=== PATIENT | female | born 1960 | race Caucasian/White ===

== ENCOUNTER → 2020-07-14 | Outpatient (CLI) | payer MEDICARE, BC ==
[~2020-07-14] MED LIST: ACET325T9 PO; ASPI-630 PO; BISM262T9 PO; BUPR2TAB SL; DIPH25CA58 PO; DOCU50CA9 PO; HYDR-2145 PO; LACT1CAP6 PO; LORA-254 PO; MELA5TAB20 PO; VENL225T PO
== END ==
LOC: LAB 10:50
PROVIDERS: ATTEND Nurse Anesthetist, Certified Registered
DX: Z01.812 Encounter for preprocedural laboratory examination (principal); Z20.828 Contact with and (suspected) exposure to other viral communicable diseases; R11.0 Nausea
CPT/HCPCS: U0003-CS

== ENCOUNTER → 2020-07-18 | Day surgery (SDC) | payer MEDICARE, BC ==
[~2020-07-18] MED LIST changes: +ACETAMINOPHEN 325 MG TABLET PO PRN; +ALBUTEROL SULFATE 2.5 MG/3 ML NEBU. NEB PRN; +ATROPINE 0.5 MG/5 ML DISP.SYRIN. IV PRN; +IV RINGERS SOLUTION,LACTATED 1,000 ML IV SCH; +MIDAZOLAM HCL PF 2 MG/2 ML VIAL. IV PRN; +ONDANSETRON PF 4 MG/2 ML VIAL. IV PRN; +PHENOL ORAL SPRAY 177ML BOTTLE. MM PRN; +PROPOFOL 10,000 MCG/ML (20ML) VIAL IV ONE; +diphenhydrAMINE 50 MG/ML VIAL IV PRN
[2020-07-18 10:31] VITALS: BP 117/79
--- NOTE | 2020-07-20 19:09 | PATHOLOGY ---
[facility] Accession Number: [id number] . 01 Material submitted: . PART A: stomach - BIOPSY GASTRIC PART B: colon - BIOPSY TRANSVERSE POLYP. Modifiers: transverse . 01 Clinical history: . N/V, FAMILY HX CA, DYSPHAGIA . 02 Diagnosis: A. Gastric biopsy: - Segments of gastroduodenal mucosa showing mild to moderate chronic inflammation. . B. Colon biopsies, transverse colon polyps: - Tubular adenomas. . (JPM:mm; 07/20/2020) [facility] 07/20/2020 1021 Local . 02 Comment: Sections of the gastric biopsy reveal segments of gastroduodenal mucosa showing mild to moderate chronic inflammation. A properly-controlled immunoperoxidase stain for Helicobacter is negative for Helicobacter organisms. . Sections of the transverse colon biopsy reveal tubular adenomas. There is no high grade dysplasia or evidence of malignancy. . Special stain: Immunoperoxidase stain for Helicobacter . (JPM:mml; 07/20/2020) . 02 Electronically signed: . Salvador Zayas MD, Pathologist NPI- [id number] . 01 Gross description: . A. The specimen is received in formalin, labeled "Arin Apodaca, biopsy gastric". Received are two segments of pale evans soft tissue ranging in size from 0.4 to 0.7 cm in maximum dimensions. The specimen is submitted entirely in cassette A1. . B. The specimen is received in formalin, labeled "Arin Paulie, transverse polyp". Received are two segments of pale evans soft tissue measuring 0.4 cm each in maximum dimensions. The specimen is submitted entirely in cassette B1. (CAA; 07/19/2020) QAC/QAC 07/19/2020 1149 Local . 02 Pathologist provided ICD-10: K29.90, D12.3 . 02 CPT . 285134, 547130, [id number] Specimen Comment: A courtesy copy of this report has been sent to [phone], [phone] Specimen Comment: 2220 Specimen Comment: Report sent to / DR MARTINEZ Performed at: 01 [facility] [address] [place] [address] [address], [place] [id number] MD Sanya Lion MD Phone: [phone] Performed at: 02 [facility] [address], [place] [id number] MD Salvador Zayas MD Phone: [phone]
== END | disposition home or self-care (01) ==
LOC: SURG 08:39
PROVIDERS: ATTEND Emergency Medicine
DX: Z12.11 Encounter for screening for malignant neoplasm of colon (principal); D12.3 Benign neoplasm of transverse colon; K63.89 Other specified diseases of intestine; K29.50 Unspecified chronic gastritis without bleeding; K22.2 Esophageal obstruction; K21.9 Gastro-esophageal reflux disease without esophagitis; F41.9 Anxiety disorder, unspecified; F32.9 Major depressive disorder, single episode, unspecified; M19.90 Unspecified osteoarthritis, unspecified site; E11.9 Type 2 diabetes mellitus without complications; E03.9 Hypothyroidism, unspecified; Z79.82 Long term (current) use of aspirin; Z79.899 Other long term (current) drug therapy; Z98.890 Other specified postprocedural states; Z88.1 Allergy status to other antibiotic agents; Z87.891 Personal history of nicotine dependence
CPT/HCPCS: 43239; 43450; 45380; J2704; J7120

== ENCOUNTER → 2020-07-28 | Outpatient (CLI) | payer MEDICARE, BC ==
[2020-07-18 10:31] VITALS: BP 117/79
[~2020-07-28] MED LIST changes: -ACETAMINOPHEN 325 MG TABLET PO PRN; -ALBUTEROL SULFATE 2.5 MG/3 ML NEBU. NEB PRN; -ATROPINE 0.5 MG/5 ML DISP.SYRIN. IV PRN; -IV RINGERS SOLUTION,LACTATED 1,000 ML IV SCH; -MIDAZOLAM HCL PF 2 MG/2 ML VIAL. IV PRN; -ONDANSETRON PF 4 MG/2 ML VIAL. IV PRN; -PHENOL ORAL SPRAY 177ML BOTTLE. MM PRN; -PROPOFOL 10,000 MCG/ML (20ML) VIAL IV ONE; -diphenhydrAMINE 50 MG/ML VIAL IV PRN
--- NOTE | 2020-07-28 14:44 | RAD ---
EXAM: Nuclear gastric emptying scan. HISTORY: Nausea. COMPARISON: None. TECHNIQUE: Serial static images were obtained over the stomach following oral administration of 2 mCi 99m-Tc sulfur colloid. FINDINGS: The stomach empties into the small bowel without evidence of reflux in the area of the esophagus. There is 47 percent retained tracer activity within stomach at one hour (normal 34.8 percent to 91 percent). There is 15 percent retained tracer activity within stomach at 2 hours (normal 2.7 percent to 60 percent). There is 5 percent retained tracer activity within stomach at 3 hours (normal 0.5 percent to 28 percent). There is 0 percent retained tracer activity within stomach at 4 hours (normal 0.0 percent to 10 percent). The estimated time for half emptying of gastric contents, i.e. 'gastric emptying time' is 54 minutes (normal is 66 +/- 22 minutes). IMPRESSION: Normal gastric emptying scan. Electronically signed by: Kaelyn Clark MD (07/28/2020 2:41 PM) [id number]
== END ==
LOC: NM 09:58
PROVIDERS: ATTEND Emergency Medicine
DX: Z12.11 Encounter for screening for malignant neoplasm of colon (principal); K63.5 Polyp of colon; K22.2 Esophageal obstruction; K29.60 Other gastritis without bleeding; K21.9 Gastro-esophageal reflux disease without esophagitis
CPT/HCPCS: 78264; A9541

== ENCOUNTER → 2021-02-24 | Outpatient (CLI) | payer MEDICARE, BC ==
[2020-07-18 10:31] VITALS: BP 117/79
--- NOTE | 2021-02-24 15:28 | RAD ---
Three-view left ankle radiographs 02/24/2021 CLINICAL HISTORY: Fall with injury to the left ankle. AP, lateral and oblique digital radiographs of the left ankle were obtained. The left ankle mortise i s intact. No acute fracture or dislocation of the left ankle is seen. Moderate degenerative changes a re seen involving the left ankle joint. Moderate enthesophyte formation is seen involving the posteri or aspect of the left calcaneus. IMPRESSION: No acute fracture or dislocation left ankle is seen. Electronically signed by: Darrell Carrasquillo MD (02/24/2021 3:26 PM) [id number]
== END ==
LOC: PMG 14:55
PROVIDERS: ATTEND Nurse Practitioner Family
DX: M19.072 Primary osteoarthritis, left ankle and foot (principal); M77.32 Calcaneal spur, left foot
CPT/HCPCS: 73610